=== PATIENT | male | born 1980 | race Caucasian/White ===

== ENCOUNTER 2016-10-30 09:16 | Emergency (ER) | payer SELFPAY ==
[~2016-10-30] VITALS: Ht 180.3 cm; Wt 93.1 kg
[~2016-10-30 09:16] MED LIST: DEPAKOTE500 MG PO; SEROQUEL100 MG PO
[2016-10-30] MEDS ORDERED: MOTRIN800 MG PO (10:52)
[2016-10-30] MEDS ORDERED: TYLENOL WITH C1 EACH PO (10:52)
[2016-10-30 11:07] VITALS: BP 119/90
== END 2016-10-30 11:08 | disposition home or self-care (01) ==
LOC: EME 09:16
DX: S30.0XXA Contusion of lower back and pelvis, initial encounter (principal); S93.402A Sprain of unspecified ligament of left ankle, initial encounter; W10.9XXA Fall (on) (from) unspecified stairs and steps, initial encounter; F17.200 Nicotine dependence, unspecified, uncomplicated
CPT/HCPCS: 72100; 73610; 99281; 99284

== ENCOUNTER 2017-09-11 11:46 | Emergency (ER) | payer SELFPAY ==
[~2017-09-11] VITALS: Ht 180.3 cm; Wt 104.7 kg
[~2017-09-11 11:46] MED LIST changes: +MOTRIN800 MG PO; +TYLENOL WITH C1 EACH PO
[2017-09-11] MEDS ORDERED: SUDAFED 12-HOU120 MG PO (12:38)
[2017-09-11 12:49] VITALS: BP 139/81
== END 2017-09-11 12:49 | disposition home or self-care (01) ==
LOC: EME 11:46
DX: J06.9 Acute upper respiratory infection, unspecified (principal)
CPT/HCPCS: 99281; 99284

== ENCOUNTER 2017-11-09 18:05 | Emergency (ER) | payer SELFPAY ==
[~2017-11-09] VITALS: Ht 180.3 cm; Wt 101.8 kg
[~2017-11-09 18:05] MED LIST changes: +SUDAFED 12-HOU120 MG PO
[2017-11-09] MEDS ORDERED: FLEXERIL10 MG PO (20:28)
[2017-11-09] MEDS ORDERED: PERCOCET 5/31 TABLET PO (20:28)
[2017-11-09 20:45] VITALS: BP 94/76
== END 2017-11-09 20:50 | disposition home or self-care (01) ==
LOC: EME 18:05
DX: S39.012A Strain of muscle, fascia and tendon of lower back, initial encounter (principal); M62.830 Muscle spasm of back; M54.16 Radiculopathy, lumbar region; W10.9XXA Fall (on) (from) unspecified stairs and steps, initial encounter; F17.200 Nicotine dependence, unspecified, uncomplicated
CPT/HCPCS: 72100; 99281; 99284

== ENCOUNTER 2018-02-02 15:50 | Emergency (ER) | payer OTHER ==
[~2018-02-02] VITALS: Ht 180.3 cm; Wt 110.2 kg
[~2018-02-02 15:50] MED LIST changes: +FLEXERIL10 MG PO; +PERCOCET 5/31 TABLET PO
[2018-02-02] MEDS ORDERED: NAPROSYN500 MG PO (17:15)
[2018-02-02] MEDS ORDERED: LIDODERM 5% P1 PATCH TD (17:15)
[2018-02-02] MEDS ORDERED: SKELAXIN800 MG PO (17:15)
[2018-02-02 17:30] VITALS: BP 124/80
== END 2018-02-02 17:34 | disposition home or self-care (01) ==
LOC: EME 15:50
DX: M54.5 Low back pain (principal); M53.86 Other specified dorsopathies, lumbar region; G89.29 Other chronic pain
CPT/HCPCS: 99281; 99283; J1885